=== PATIENT | female | born 1945 | race Caucasian/White ===

== ENCOUNTER 2017-08-04 15:40 | Emergency (ER) | payer OTHER, MEDICARE ==
[~2017-08-04] VITALS: Ht 162.6 cm; Wt 96.2 kg
[~2017-08-04 15:40] MED LIST: ADVAIR 100-501 EACH; ADVAIR 500-501 EACH INH; ALLERGY10 M1; ASPIR-TRIN325 MG PO; ASPIRIN81 M2 PO; BYSTOLIC 5 MG5 MG PO; EFFIENT10 MG PO; GLUCOPHAGE XR500 MG PO; GLUCOPHAGE1000 MG; GLUCOTROL5 MG PO; LISINOPRIL5 MG PO; LORATIDINE 10 M10 M1 PO; MULTIVITAMINS PO; NEXIUM40 MG PO; NORCO 5-325 TA1 EACH PO; REGLAN 5 MG TAB5 M1 PO; SINGULAIR 10 MG10 M1 PO; SYNTHROID25 MCG; SYNTHROID50 MCG PO; VASCEPA1 GM PO
[2017-08-04] MEDS ORDERED: SINGULAIR 10 MG10 M1 PO (15:56)
[2017-08-04] MEDS ORDERED: SYNTHROID50 MCG PO (15:56)
[2017-08-04] MEDS ORDERED: ASPIRIN500 MG PO (15:57)
[2017-08-04] MEDS ORDERED: SYMBICORT160 MCG/4. INH (15:57)
[2017-08-04] MEDS ORDERED: TRAMADOL 50 MG50 MG PO (15:58)
[2017-08-04] MEDS ORDERED: NORCO 5-325 TA1 EACH PO (16:47)
== END 2017-08-04 17:30 | disposition home or self-care (01) ==
LOC: ER 15:40
DX: M25.562 Pain in left knee (principal); E11.9 Type 2 diabetes mellitus without complications; J45.909 Unspecified asthma, uncomplicated; G47.30 Sleep apnea, unspecified; M19.90 Unspecified osteoarthritis, unspecified site; I10 Essential (primary) hypertension; Z86.14 Personal history of Methicillin resistant Staphylococcus aureus infection; Z88.8 Allergy status to other drugs, medicaments and biological substances; Z88.5 Allergy status to narcotic agent

== ENCOUNTER 2018-10-14 05:45 | Inpatient (IN) | payer OTHER, MEDICARE ==
[~2018-10-14] VITALS: Ht 162.6 cm; Wt 102.1 kg
--- NOTE | ~2018-10-14 | HC ---
[facility] [place] [address] [address] CONSULTATION Name: EDILMA MOREIRA Nikki Room #: 431-P ADM IN M.R.#: [id number] Admission: 10/15/18 ������������������ Attend Phys: Teddy Person MD Discharge: ������������������ Date of : 47 Report #: [id number] THIS REPORT FOR: //name// CC: Meryl Person DATE OF SERVICE: 10/16/2018 HISTORY OF PRESENT ILLNESS: The patient is a 72-year-old white female with history of trochanteric bursitis, abductor tendon tear, right hip, who was admitted to [facility] and underwent right hip open trochanteric bursectomy with abductor tendon repair, 10/14/2018. She is allowed 30-50 pounds weightbearing with walker and brace. She is to wear the brace when standing and ambulatory, but not in bed. Her postop course was complicated by a syncopal episode getting up to the bedside commode, thought that likely be vasovagal. She has been given a normal saline bolus. PAST MEDICAL HISTORY: Does include coronary artery disease with SIDDHARTH x 2 in 2013. She has history of arthritis, lumbar laminectomy x 2. She has had radiofrequency ablation done to her spine, diabetes mellitus, asthma, obstructive sleep apnea, but is not currently on CPAP, hypertension, MRSA of the lip. She has chronic pain syndrome, but does not tolerate pain medications and typically just takes Tylenol or follows with her pain physician, Dr. Spain, history of elevated lipids, but does not tolerate STATINS. MEDICATIONS: Please see the full medication listing. SOCIAL HISTORY: Lives in a house alone, one floor and 3 steps, does not have anyone that could stay with her. REVIEW OF SYSTEMS: No current complaints of chest pain, shortness of breath or abdominal discomfort. PHYSICAL EXAMINATION: GENERAL: A 72-year-old pleasant, overweight white female, in no obvious distress. VITAL SIGNS: Last recorded temperature 37.6, pulse 88, respirations 18, blood pressure 114/51. The patient is alert. HEENT: Appeared to be benign. NEUROLOGIC: Cranial nerves are grossly intact. Facies are symmetric. EXTREMITIES: She has functional range of motion of both upper extremities with good strength. In her lower extremities, her right hip is dressed. There is no focal calf swelling. She can dorsiflex the right ankle. No obvious focal weakness of the left lower extremity. Tone appeared to be intact. She is min assist with transfers, min assist to ambulate 50-60 feet with a walker. She does [place] [address] CONSULTATION Name: EDILMA MOREIRA Nikki Room #: [address] [place] [address].#: [id number] Admission: 10/15/18 ������������������ Attend Phys: Teddy Person MD Discharge: ������������������ Date of : 47 Report #: [id number] ASSESSMENT: A 72-year-old white female with the following problem list: 1. Trochanteric bursitis, abductor tendon tear, right hip status post right hip open trochanteric bursectomy with abductor tendon repair, 10/14/2018. 2. Syncopal episode during the postoperative period, likely vasovagal, warranting normal saline bolus. 3. Functional mobility and ADL deficits. OT is to further assess her ADL needs. 4. Coronary artery disease with prior history of drug-eluting stents x 2 in 2013. 5. Diabetes mellitus. 6. Chronic pain syndrome. 7. Lumbar laminectomy x 2. 8. Past history of radiofrequency ablation of her spine. 9. Obstructive sleep apnea. 10. Asthma. 11. Hypertension. 12. Exogenous obesity. PLAN: Occupational therapy orders are added. It is my understanding that we do not have an acute [address] [place] [address] inpatient rehab bed available today. We will need to see how she does in PT and OT and we will follow along with you regarding her appropriateness for an acute [address] [place] [address] inpatient rehabilitation stay. Thank you for asking us to assist in this patient's care. ��������������������������������������������� ���������������������������������������� By: ��������������������������������������������� [id number] Fransisco Ponce MD /KIERRA
[~2018-10-14 05:45] MED LIST changes: +ALLER-EASE180 MG PO; +ASPIRIN500 MG PO; +IPRATROPIU0.2 MG/1 M INH; +METFORMIN HCL500 M3 PO; +SYMBICORT160 MCG/4. INH; +TRAMADOL 50 MG50 MG PO
[2018-10-14 07:04] VITALS: BP 120/70
--- NOTE | 2018-10-14 09:19 | EKG ---
[place] [address] [facility] [place] [address] ELECTROCARDIOGRAM REPORT Name: HETALKiahMERYEDILMA D Room #: [address] [place] [address]#: [id number] ������������������ Admission: 10/14/18 ������������������ Attend Phys: Teddy Person MD Discharge: ������������������ Date of : 47 Report #: [id number] ����������������������������������������������������������������� [id number] THIS REPORT FOR: //name// [facility] Test Date: 2018-10-14 Test Time: 06:32:04 Pat Name: EDILMA MOREIRA Department: Room: [facility] Gender: F Material Mover: pillo : 1945 Requested By: Vinicio Culver Order Number: [id number] MD: Aguila Abraham Measurements Intervals [place] Rate: 80 P: 66 HI: 180 QRS: -11 QRSD: 100 T: 36 QT: 392 QTc: 453 Interpretive Statements Sinus rhythm Early R-wave progression Compared to ECG 03/10/2014 00:43:11 No significant changes Electronically Signed On 10-14-2018 9:18:52 CDT by Aguila Abraham [email or web address] ��������������������������������������������� <ELECTRONICALLY SIGNED> ���������������������������������������� By: Aguila Abraham MD, [facility] ��������������������������������������������� 10/14/18 0918 1 Aguila Abraham MD, [facility] /EPI
--- NOTE | 2018-10-14 14:04 | NUR ---
PT ARRIVED ON UNIT AT 1023. ALERT XS 4. NO PAIN NO RESP DISTRESS NOTED. DRSG INTACT TO RIGHT HIP. ACCU CHECK AT NOON WAS 151 PT STATES TAKES METFORMIN. PT PLEASANT AND COOPERATIVE WITH CARE.
--- NOTE | 2018-10-14 16:02 | NUR ---
ASSESSMENT: CM REVIEWED CHART AND MET WITH PATIENT AT THE BEDSIDE. PT HAD BURSECTOMY WITH TENDON REPAIR. PT REPORTS THAT SHE LIVES IN A HOUSE ALONE. PT REPORTS HAVING TWO STEPS TO ENTER THE HOME WITH A HANDRAILS. PT REPORTS NOT HAVING STEPS ONCE INSIDE. PT REPORTS THAT SHE NORMALLY AMBULATES INDEPENDENT BUT STATES SHE WAS TOLD SHE WILL NEED A WALKER ONCE SHE GOES HOME. CM DISCUSSED THIS WITH PATIENT AND SHE HAS NO PREFERENCE OF PROVIDER. CM REQUESTED PROVIDER PLUS TO LOOK INTO PROVIDING PATIENT WITH A WALKER ONCE WE GET A SCRIPT. PT REPORTS SHE HAS A GRAB BAR AND SHOWER CHAIR. PT REPORTS SHE HAS NOT HAD HH IN THE PAST AND STATES SHE MAY BENEFIT FROM THAT AT DISCHARGE. CM DISCUSSED HH OPTIONS AND PT STATES SHE REALLY HAS NO PREFERENCE AND WOULD LIKE TO LOOK INTO [facility]. CM NOTIFIED [facility]. CM WILL CONTINUE TO FOLLOW TO ASSIST NEEDED.
[2018-10-14 20:00] VITALS: BP 143/51
[2018-10-15] VITALS (8 sets, daily range): BP systolic 88–131; BP diastolic 30–83
--- NOTE | 2018-10-15 06:30 | NUR ---
ASSUMED CARE AT 1900, ASSESSMENT COMPLETED. PT REPORTED MODERATE-HIGH PAIN IN RIGHT HIP, DENIED SOA, INITIALLY NO NAUSEA. ABOUT 1999, ASSISTED PT TO SIT ON SIDE OF BED IN ORDER TO USE BSC. PT HAD SLIGHT DIZZINESS AND BECAME MILDLY NAUSEATED, BUT TOLERATED STANDING AND PIVOTING TO BSC AND BACK TO BED; GAVE ONE DOSE OF ZOFRAN AND TYLENOL, PT TOLERATED WELL. PT GOT UP AGAIN AROUND MIDNIGHT WITHOUT ANY TROUBLE, DID A BETTER JOB MOVING LEG IN AND OUT OF BED, HAD NO NAUSEA OR DIZZINESS. ASKED FOR TYLENOL EVERY 3-4 HOURS. VITAL SIGNS STABLE OVERNIGHT. THIS AM, PT WAS ASSISTED TO BSC BY THE SERVER SERVICE ASSISTANT, AND SHE BECAME VERY LIGHTHEADED AND DIZZY, SWEATY AND PALE; PER SERVER SERVICE ASSISTANT AND RN THAT RESPONDED TO ROOM, PT DID BRIEFLY PASS OUT WHILE SITTING ON THE BSC. BP DROPPED TO 80/30. RN'S ASSISTED PT BACK INTO THE BED AND ELEVATED LEGS ABOVE THE HEART. PT REPORTED STILL VERY WEAK, SWEATY, AND LIGHTHEADED. BP DID IMPROVE TO 120'S/50'S. CALLED DR. RODRIGUEZ'S ANSWERING SERVICE, SPOKE WITH ON-CALL PHYSICIAN; OBTAINED ORDER FOR STAT LABS AND A 1L NS BOLUS. WILL CONTINUE TO MONITOR.
[2018-10-15 07:02] LABS: HEMATOCRIT 33.6 % (37.0-47.0); HEMOGLOBIN 11.2 gm/dL (12.0-15.0); MCH 30.3 pg (26.0-34.0); MCHC 33.3 g/dL (28.0-37.0); MCV 91.1 fL (80.0-100.0); RBC 3.69 mil/uL (4.20-5.00); RDW 15.2 % (10.5-14.5); WBC 10.1 thou/uL (4.0-11.0)
[2018-10-15 07:18] LABS: CALCIUM 8.5 mg/dL (8.5-10.1); CREATININE 0.8 mg/dL (0.6-1.0); POTASSIUM 4.2 mmol/L (3.5-5.1)
[2018-10-15 07:24] LABS: ALBUMIN 2.9 g/dL (3.4-5.0); TOTAL BILIRUBIN 0.4 mg/dL (<0.1-1.0); TOTAL PROTEIN 6.7 g/dL (6.4-8.2)
--- NOTE | 2018-10-15 10:28 | NUR ---
Following for d/c planning needs. Spoke with pt and she said she will not be d/c home today. She is still undecided if she will be going to SNF on d/c from hospital or return directly home. Will provide walker for home use if she returns home. Will await input from PT re: recommendation for d/c.
--- NOTE | 2018-10-15 11:58 | NUR ---
PATIENT TAKEN TO PRE OP AT 1100 HAVING LAPROSCOPIC CHOLECYSTECTOMY. PT STATES NO PAIN OR RESP DISTRESS.
--- NOTE | 2018-10-15 12:18 | O ---
[facility] [place] [address] OPERATIVE REPORT Name: EDILMA MOREIRA Room #: 431-P [facility] IN M.R.#: [id number] Admission: 10/15/18 ������������������ Attend Phys: Teddy Person MD Discharge: ������������������ Date of : 47 Report #: [id number] THIS REPORT FOR: //name// CC: Meryl Marta Person DATE OF SERVICE: 10/14/2018 SERVICE: Orthopedics. FACILITY: [facility]. SURGEON: Teddy Person MD. PAPER PRODUCTS PRINTER: Barbara Santos NP. INDICATION FOR PAPER PRODUCTS PRINTER: Extremity positioning, retraction, suture management, assistance with repair. PREOPERATIVE DIAGNOSES: 1. Right hip pain. 2. Right hip greater trochanteric pain syndrome with trochanteric bursitis and chronic abductor tendon partial thickness tear. POSTOPERATIVE DIAGNOSES: 1. Right hip pain. 2. Right hip greater trochanteric pain syndrome with trochanteric bursitis and chronic abductor tendon partial thickness tear. PROCEDURE: Open right hip trochanteric bursectomy with abductor tendon repair. COMPLICATIONS: None. DRAINS: None. SPECIMENS: None. ANESTHESIA: General. FINDINGS: Partial thickness tear of the abductor tendon on the deep side, treated with single [place] labral tape and ReelX suture anchor. HISTORY: The patient is a 72-year-old female with a history of chronic lateral right hip pain that failed all conservative measures. She had extensive treatment with rest, activity modification, injections, physical therapy, oral medicines, all without sufficient relief. She had imaging, which was consistent [facility] [address] [place] [address] OPERATIVE REPORT Name: LILLIEEDILMA Nikki Room #: 431-P [facility] IN .R.#: [id number] Admission: 10/15/18 ������������������ Attend Phys: Teddy Person MD Discharge: ������������������ Date of : 47 Report #: [id number] with partial tear of the abductor tendon. We had a discussion about optimal treatment measures. Ultimately, she elected to undergo definitive treatment. Risks, benefits, alternatives, and indication of surgery discussed with her. Risks include but not limited to pain, bleeding, infection, injury to nerves or blood vessels, persistent pain despite surgery, progression of any preexisting articular cartilage damage within the hip joint itself as well as complications related to anesthesia. PROCEDURE IN DETAIL: After right lower extremity was correctly identified in the preoperative holding area as the operative extremity, the patient was taken to the operating room where general anesthesia was induced without complication. She was turned into lateral decubitus position, right side up, left side down, padded appropriately. Prophylactic antibiotics were administered at appropriate time. Right leg was then prepped and draped in standard sterile fashion. Timeout procedure performed. An incision was made over the lateral aspect of the hip. Full thickness skin flaps were developed to work through the fat down to the fascial layer, which was incised in line with the fibers of the muscle and then the deep layer was encountered. There was some proliferative trochanteric bursitis, which was excised with the knife as well as cautery exposing the abductor tendon. Superficial fibers of the abductor tendon were intact. This was incised longitudinally allowing access to the deep layer where there was partial tear present. [place] was used to debride the tendinopathy that was present and then a sharp osteotome was used to fish scale the lateral cortex of the trochanter to generate a bleeding environment for healing. A 2 mm labral tape was then used to create a running locking suture configuration within the gluteus medius and minimus muscle bellies and tendons with full thickness bites. These tails were then placed into a [employer] anchor, which was impacted into the greater trochanter and then it was tensioned with the deployment device in a typical fashion, which provided good reduction force on the abductor tendon. The #1 nonabsorbable suture was then used to oversew the longitudinal split within the tendon and it was sewn upon itself for reinforcement fixation. The stitch was left within the anchor to essentially provide it 2-suture, 1 anchor repair. At this point, the wound was copiously irrigated, 1 gram of vancomycin powder was placed within the wound and then the IT band and fascial layer was closed with 0 Vicryl suture in [id number] fashion. The fat layer was closed and then the skin was closed with 2-0 Vicryl followed by running subcuticular 3-0 Monocryl and Dermabond dressing. The patient was awakened by Anesthesia, taken to recovery room in stable condition. No complications. All counts were reported as correct. ��������������������������������������������� <ELECTRONICALLY SIGNED> ���������������������������������������� By: Teddy Person MD ��������������������������������������������� 10/15/18 1218 1647 44 Teddy Person MD /nt
[2018-10-16 04:57] VITALS: BP 119/53
--- NOTE | 2018-10-16 06:00 | NUR ---
PT C/O PAIN ON HER R HIP AT START OF SHIFT,MANAGED WITH PO MED.DRSG ON HER HIP C/D/I.SCD ON BLE.PT USES A BEDPAN FOR ELIMINATION.PT ABLE TO MAKE HER NEEDS KNOW.PT RESTING ON HER BED AT THIS TIME.FALL PRECAUTIONS IN PLACE,CALL LIGHT WITHIN REACH.
[2018-10-16 09:20] VITALS: BP 114/51
--- NOTE | 2018-10-16 10:38 | NUR ---
ASSISTED PATIENT TO BATHROOM HAD LARGE SOFT BM. PT WORKING WITH THERAPY. PT UP IN BEDSIDE CHAIR.
--- NOTE | 2018-10-16 16:03 | NUR ---
Following for d/c planning needs. Received order from physician to arrange inpatient rehab for pt. Spoke with pt and [facility]. She is also interested in [facility] since she has had friends who have been there. Pt was evaluated by both [address] [place] [address] and [facility]. Both have accepted pt. Pt said she would prefer going to [facility]. Plans are for pt to d/c to [facility] on Saturday.
[2018-10-16 18:17] VITALS: BP 107/43
--- NOTE | 2018-10-16 19:50 | NUR ---
B/P RETAKEN BY THIS NURSE 131/53 18:16
[2018-10-17 03:40] VITALS: BP 128/62
--- NOTE | 2018-10-17 07:02 | NUR ---
PT UP WITH SBA AND WALKER WITH HER BRACES IN PLACE TO BR.PT DENIED PAIN THIS SHIFT.PT USED THE BED RAMOS WHILE IN BED.MEDIUM BM THIS SHIFT.PT LOOKING FORWARD TO BE DC TODAY.FALL PRECAUTIONS IN PLACE,CALL LIGHT WITHIN REACH.
--- NOTE | 2018-10-17 10:11 | NUR ---
PT DISCHARGING TODAY TO [facility] FAXED DC ORDERS/SUMMARY TO FACILITY SPOKE WITH STEVE ANAYA ORDERS RECEIVED. PT TO NOTIFY FAMILY OF DC TRANSPORT ARRANGED FOR 1030 VIA WC VAN. UNIT NOTIFIED AND CHART COPY PER US. RN TO CALL REPORT TO [phone].
--- NOTE | 2018-10-17 10:17 | NUR ---
Following for d/c planning needs. Spoke again with pt this morning. She said her first choice is [facility]. Spoke with Margie at [facility] and their w/c van will transport between [phone] today. Chart copied. neighborhood planner faxed orders to facility. Patient choice letter signed and on chart. No other needs identified.
--- NOTE | 2018-10-17 11:02 | NUR ---
ASSUMED CARE AT 0900, SHIFT ASSESSMENT DONE, MEDS GIVEN, VSS. DENIES ANY PAIN, NAUSEA, VOMITING. DISCHARGE ORDER RECEIVED. REPORT CALLED THIS AM TO FACILITY. PERIPHERAL IV WAS TAKEN OUT. SCHEDULED TO LEAVE WITH TRANSPORTATION THIS AM.
== END 2018-10-17 11:25 | DRG 502 ==
LOC: OR 05:45 → TBA 05:48 → OR 10:45 → 4E 10:46 → OR 12:30 → 4E 10-15 07:45
PROVIDERS: Nurse Practitioner Family; ADMIT Orthopaedic Surgery Sports Medicine
PROC: 0MBL0ZZ Excision of Right Hip Bursa and Ligament, Open Approach (ICD-10-PCS; principal; 2018-10-14)
PROC: 0LQJ0ZZ Repair Right Hip Tendon, Open Approach (ICD-10-PCS; principal; 2018-10-14)
DX: S76.011A Strain of muscle, fascia and tendon of right hip, initial encounter (principal); M70.61 Trochanteric bursitis, right hip; I25.10 Atherosclerotic heart disease of native coronary artery without angina pectoris; Z95.5 Presence of coronary angioplasty implant and graft; J45.909 Unspecified asthma, uncomplicated; G47.33 Obstructive sleep apnea (adult) (pediatric); M19.90 Unspecified osteoarthritis, unspecified site; G89.4 Chronic pain syndrome; Z86.14 Personal history of Methicillin resistant Staphylococcus aureus infection; E66.09 Other obesity due to excess calories; X58.XXXA Exposure to other specified factors, initial encounter; Y93.89 Activity, other specified; Y92.89 Other specified places as the place of occurrence of the external cause; Y99.8 Other external cause status; Z68.38 Body mass index [BMI] 38.0-38.9, adult
CPT/HCPCS: 10783; 50010; 50101; 50382; 50414; 52256; 53078; 54118; 55430; 56526; 56527; 56528; 57103; 62110; 62900; 70005

== ENCOUNTER → 2019-11-04 | Outpatient (CLI) | payer OTHER, MEDICARE | LOC: SJCVC 10:25 | PROVIDERS: ATTEND Internal Medicine Cardiovascular Disease | DX: I25.10 Atherosclerotic heart disease of native coronary artery without angina pectoris (principal); E11.9 Type 2 diabetes mellitus without complications; E78.00 Pure hypercholesterolemia, unspecified; Z78.9 Other specified health status; Z90.49 Acquired absence of other specified parts of digestive tract; Z90.710 Acquired absence of both cervix and uterus; Z82.49 Family history of ischemic heart disease and other diseases of the circulatory system ==

== ENCOUNTER → 2021-05-10 | Outpatient (CLI) | payer OTHER, MEDICARE | LOC: SJCVCIMAG 08:42 | PROVIDERS: ATTEND Internal Medicine Cardiovascular Disease | DX: R00.0 Tachycardia, unspecified (principal); I25.10 Atherosclerotic heart disease of native coronary artery without angina pectoris; I10 Essential (primary) hypertension; E78.00 Pure hypercholesterolemia, unspecified; E11.9 Type 2 diabetes mellitus without complications; G47.30 Sleep apnea, unspecified; E66.09 Other obesity due to excess calories; E78.5 Hyperlipidemia, unspecified; Z88.5 Allergy status to narcotic agent; Z88.8 Allergy status to other drugs, medicaments and biological substances; Z78.9 Other specified health status; Z79.82 Long term (current) use of aspirin; Z79.84 Long term (current) use of oral hypoglycemic drugs; Z79.899 Other long term (current) drug therapy ==